=== PATIENT | female | born 1980 | race Caucasian/White ===

== ENCOUNTER 2017-01-10 06:49 | Day surgery (SDC) | payer OTHER ==
[2017-01-10] MEDS ORDERED: LR 1,000 ML IV ONE (07:30)
[2017-01-10] MEDS ORDERED: BUPIVACAINE 0.5% 30 ML SDV ONE (07:31)
[2017-01-10] MEDS ORDERED: ceFAZolin 2 GM/DEXTROSE 100 ML IV ONE (08:00)
[2017-01-10] MEDS ORDERED: PROPOFOL 200 MG/20 ML VIAL ONE (08:11)
[2017-01-10] MEDS ORDERED: ONDANSETRON 4 MG/2 ML VIAL ONE (08:11)
[2017-01-10] MEDS ORDERED: ROCURONIUM 50 MG/5 ML VIAL ONE (08:11)
[2017-01-10] MEDS ORDERED: SUGAMMADEX SODIUM 200 MG/2 ML VIAL IVP ONE (08:11)
[2017-01-10] MEDS ORDERED: DEXAMETHASONE 4 MG/ML VIAL ONE (08:11)
[2017-01-10] MEDS ORDERED: fentaNYL 250 MCG/5 ML INJ ONE (08:11)
[2017-01-10] MEDS ORDERED: LIDOCAINE 2% 100 MG/5 ML SYR IVP ONE (08:11)
[2017-01-10] MEDS ORDERED: MIDAZOLAM 2 MG/2 ML VIAL ONE (08:40)
[2017-01-10] MEDS ORDERED: KETOROLAC 30 MG/1 ML SDV ONE (09:31)
[2017-01-10] MEDS ORDERED: fentaNYL 100 MCG/2 ML INJ ONE (10:15)
[2017-01-10] MEDS ORDERED: OXYCODONE/APAP 5/325 TAB ONE (11:10)
--- NOTE | 2017-01-11 10:05 | GOP ---
DATE OF OPERATION: 01/10/2017 SURGEON: William Davila MD CYCLE ANALYST: RACHEL Pappas. ANESTHESIA: General. ANESTHESIOLOGIST: Dr. Sommers. PREOPERATIVE DIAGNOSIS: Recurrent ventral hernia and right arm mass. POSTOPERATIVE DIAGNOSIS: Recurrent ventral hernia and right arm mass with lipoma of the right forearm. PROCEDURE PERFORMED: Open repair recurrent ventral hernia and excision 3 cm lipoma rt forearm FINDINGS: 1 cm ventral hernia defect/ 3 cm lipoma ESTIMATED BLOOD LOSS: Negligible. DESCRIPTION OF PROCEDURE: Patient taken to the operating room, where she received satisfactory general laryngeal mask anesthesia by Dr. Sommers. Placed in the supine position with the right arm outstretched on an arm board. Longitudinal incision was made over the mass in the right forearm, and dissection extended to the subcutaneous tissue. A 3 cm lipoma was dissected free from surrounding tissues and removed. Hemostasis was obtained. The wound was closed with 3-0 Vicryl for the subcu and a 4-0 Monocryl subcuticular stitch for the skin. Attention was turned to the ventral hernia. A transverse incision was made in the supraumbilical area. Dissection extended down through subcutaneous tissue. The hernia sac was dissected free from surrounding subcutaneous tissue and off the back of the skin. The sac was opened at the fascial level exposing a less than 1 cm defect. The incarcerated fat was reduced. The fascial edges were freshened up and then closed in a [id number] type 2-layer closure with 0 Surgilon mattress sutures. Hemostasis was assured. The wound was infiltrated with 0.5% Marcaine. Subcu was closed with 3-0 Vicryl and the skin with 4-0 Monocryl subcuticular stitch. She tolerated the procedure well. Taken to recovery room in good condition. /[id number]/MODL MTDD
== END 2017-01-10 12:01 | disposition home or self-care (01) ==
LOC: FSGY 06:49
PROVIDERS: ATTEND Surgery
PROC: 0JBG0ZZ Excision of Right Lower Arm Subcutaneous Tissue and Fascia, Open Approach (ICD-10-PCS; principal; 2017-01-10 08:30)
PROC: 0WQF0ZZ Repair Abdominal Wall, Open Approach (ICD-10-PCS; principal; 2017-01-10 08:30)
DX: K43.2 Incisional hernia without obstruction or gangrene (principal); D17.21 Benign lipomatous neoplasm of skin and subcutaneous tissue of right arm
CPT/HCPCS: J0690; J1100; J1885; J2001; J2250; J2405; J2704; J3010